=== PATIENT | female | born 1945 | race Caucasian/White ===

== ENCOUNTER → 2018-05-29 | Outpatient (CLI) | payer MEDICARE ==
[~2018-05-29] MED LIST: ACET-1600 PO; ALPH300C PO; AMIO200T PO; ASPI-496 PO; ATOR10TA PO; ATOR80TA PO; B VITAMIN PO; CLOP75TA52 PO; DEXL60CA2 PO; EZET10TA18 PO; FURO-92 PO; Hydrocodone Bit/Acetaminophen PO; INDA2.5T PO; LACT1CAP35 PO; LEVO50TA PO; LEVO50TA64 PO; LEVO75TA5 PO; LEVO75TA59 PO; LOSA100T6 PO; LOSA25TA5 PO; METO25TA91 PO; NOVALOG PUMP SC; POTA20TA14 PO; RANI150T23 PO; UBID200C PO; WARF2.5T73 PO-COUM
== END | disposition home or self-care (01) ==
LOC: CFH 10:51
PROVIDERS: ATTEND Internal Medicine Cardiovascular Disease
DX: I10 Essential (primary) hypertension (principal); E10.9 Type 1 diabetes mellitus without complications; E78.5 Hyperlipidemia, unspecified
CPT/HCPCS: 93306

== ENCOUNTER → 2018-10-18 | Outpatient (CLI) | payer MEDICARE ==
[~2018-10-18] MED LIST changes: -LOSA100T6 PO; +LOSA100T7 PO; -LOSA25TA5 PO; +LOSA25TA6 PO; +REGADENOSON 0.4 MG/5 ML SYRINGE ONE; +WARF2.5T32 PO-COUM; -WARF2.5T73 PO-COUM
== END | disposition home or self-care (01) ==
LOC: CFH 12:45
PROVIDERS: ATTEND Internal Medicine Cardiovascular Disease
DX: I25.9 Chronic ischemic heart disease, unspecified (principal)
CPT/HCPCS: 78452; 93017; A9502; J2785

== ENCOUNTER 2018-11-03 07:39 | Day surgery (SDC) | payer MEDICARE ==
[~2018-11-03] VITALS: Ht 171.4 cm; Wt 72.7 kg
[~2018-11-03 07:39] MED LIST changes: -REGADENOSON 0.4 MG/5 ML SYRINGE ONE
[2018-11-03 08:08] VITALS: BP 143/71
[2018-11-03] MEDS ORDERED: NITR0.6T4 SL (08:25)
[2018-11-03 08:42] LABS: BASOPHILS # (AUTO) 0.03 x10^3/uL (0-0.1); BASOPHILS % (AUTO) 1 % (0-1); EOSINOPHILS # (AUTO) 0.09 x10^3/uL (0-0.4); EOSINOPHILS % (AUTO) 2 % (1-7); LYMPHOCYTES # (AUTO) 1.21 x10^3/uL (1-3.4); LYMPHOCYTES % (AUTO) 28 % (22-44); MD NO; MEAN CORPUSCULAR HEMOGLOBIN 30.5 pg (27.0-34.8); MEAN CORPUSCULAR HGB CONC 33.2 g/dL (32.4-35.8); MEAN PLATELET VOLUME 7.7 fL (7.4-10.4); MONOCYTES # (AUTO) 0.35 x10^3/uL (0.2-0.8); MONOCYTES % (AUTO) 8 % (2-9); NEUTROPHILS # (AUTO) 2.58 x10^3/uL (1.8-6.8); NEUTROPHILS % (AUTO) 60 % (42-75); PLATELET COUNT 283 x10^3/uL (130-400); RED BLOOD COUNT 3.97 x10^6/uL (3.82-5.3); RED CELL DISTRIBUTION WIDTH 12.7 % (9.6-15.2)
[2018-11-03 08:54] LABS: ALANINE AMINOTRANSFERASE 21 U/L (12-78); ALBUMIN 3.6 g/dL (3.4-5.0); ANION GAP 9 mmol/L (5-15); CALCIUM 8.6 mg/dL (8.5-10.1); CHLORIDE 107 mmol/L (98-107)
[2018-11-03 08:57] LABS: ALKALINE PHOSPHATASE 53 U/L (45-117); BILIRUBIN,TOTAL 1.2 mg/dL (0.2-1.0); CREATININE 1.17 mg/dL (0.55-1.02); TOTAL PROTEIN 6.5 g/dL (6.4-8.2)
[2018-11-03] MEDS ORDERED: TICAGRELOR 90 MG TABLET ONE (09:16)
[2018-11-03] MEDS ORDERED: FENTANYL PF 100 MCG/2ML ONE (09:16)
[2018-11-03] MEDS ORDERED: NITROGLYCERIN 5 MG/ML, 10ML ONE (09:16)
[2018-11-03] MEDS ORDERED: BIVALIRUDIN 250 MG ONE (09:16)
[2018-11-03] MEDS ORDERED: MIDAZOLAM 1 MG/ML, 5ML ONE (09:16)
[2018-11-03] MEDS ORDERED: VERAPAMIL 2.5 MG/ML, 2ML ONE (09:16)
[2018-11-03] MEDS ORDERED: HEPARIN 1,000 UNITS/ML, 10ML ONE (09:17)
[2018-11-03] MEDS ORDERED: LIDOCAINE 2%, 20ML ONE (09:17)
== END 2018-11-03 13:18 | disposition home or self-care (01) ==
LOC: CACL 07:39
PROVIDERS: ATTEND Internal Medicine Cardiovascular Disease
DX: I25.10 Atherosclerotic heart disease of native coronary artery without angina pectoris (principal); I35.8 Other nonrheumatic aortic valve disorders; E10.8 Type 1 diabetes mellitus with unspecified complications; I10 Essential (primary) hypertension; Z79.899 Other long term (current) drug therapy
CPT/HCPCS: 36415; 80053; 85025; 93459; 99156; C1760; C1769; C1894; J2250; J3010; J3490; Q9967; J0583; J1644

== ENCOUNTER 2021-04-30 05:33 | Day surgery (SDC) | payer MEDICARE ==
[2021-04-29 11:06] LABS: ALANINE AMINOTRANSFERASE 27 U/L (12-78); ALBUMIN 3.5 g/dL (3.4-5.0); ANION GAP 6 mmol/L (5-15); CALCIUM 9.4 mg/dL (8.5-10.1); CHLORIDE 103 mmol/L (98-107)
[2021-04-29 11:09] LABS: ALKALINE PHOSPHATASE 55 U/L (45-117); BILIRUBIN,TOTAL 0.8 mg/dL (0.2-1.0); CREATININE 1.02 mg/dL (0.55-1.02)
[~2021-04-30] VITALS: Ht 175.3 cm; Wt 71.9 kg
[~2021-04-30 05:33] MED LIST changes: +ACET650S21 PO; -EZET10TA18 PO; +EZET10TA70 PO; +LOSA100T14 PO; -LOSA100T7 PO; +LOSA25TA25 PO; -LOSA25TA6 PO; +NITR0.6T4 SL; +RANI-467 PO; -RANI150T23 PO; -UBID200C PO; +UBID200C33 PO; +VITA1CAP PO
[2021-04-30 06:27] VITALS: BP 160/80
[2021-04-30] MEDS ORDERED: CHLORHEXIDINE 15 ML UDC PO ONE (06:30)
[2021-04-30] MEDS ORDERED: LACTATED RINGERS 1,000 ML IV SCH (06:30)
[2021-04-30] MEDS ORDERED: HEPARIN 1,000 UNITS/ML, 10ML ONE (06:38)
[2021-04-30] MEDS ORDERED: BUPIVACAINE/PF 0.5% ONE (06:38)
[2021-04-30] MEDS ORDERED: EPINEPHRINE 1 MG/ML, 1ML ONE (06:38)
[2021-04-30] MEDS ORDERED: FENTANYL PF 100 MCG/2ML ONE (07:22)
[2021-04-30] MEDS ORDERED: MIDAZOLAM 1 MG/ML, 2ML ONE (07:22)
[2021-04-30] MEDS ORDERED: PROPOFOL 10 MG/ML, 20ML ONE (07:58)
[2021-04-30] MEDS ORDERED: ONDANSETRON 2MG/ML, 2ML ONE (07:58)
[2021-04-30] MEDS ORDERED: CEFAZOLIN 1,000 MG ONE ×2 (07:58)
[2021-04-30] MEDS ORDERED: ONDANSETRON 2MG/ML, 2ML IVPush PRN (08:00)
[2021-04-30] MEDS ORDERED: HYDROmorphone 1 MG/ML, 1ML INJ IVPush PRN (08:00)
[2021-04-30] MEDS ORDERED: FENTANYL PF 100 MCG/2ML IV PRN (08:00)
[2021-04-30] MEDS ORDERED: ACETAMINOPHEN 325 MG TABLET PO PRN (08:00)
[2021-04-30] MEDS ORDERED: MEPERIDINE/PF 25MG/0.5ML IVPush PRN (08:00)
[2021-04-30] MEDS ORDERED: OXYcodone 5 MG/5 ML ORAL.SOL UDC PO PRN (08:00)
[2021-04-30] MEDS ORDERED: HYDR-2214 PO (08:36)
[2021-04-30] MEDS ORDERED: ONDA4TAB7 PO (08:36)
== END 2021-04-30 09:30 | disposition home or self-care (01) ==
LOC: OUT 05:33
PROVIDERS: ATTEND Surgery
DX: C50.812 Malignant neoplasm of overlapping sites of left female breast (principal); I25.10 Atherosclerotic heart disease of native coronary artery without angina pectoris; I10 Essential (primary) hypertension; E11.9 Type 2 diabetes mellitus without complications; E03.9 Hypothyroidism, unspecified; Z17.1 Estrogen receptor negative status [ER-]; Z20.822 Contact with and (suspected) exposure to COVID-19; Z79.899 Other long term (current) drug therapy; Z88.0 Allergy status to penicillin; Z95.1 Presence of aortocoronary bypass graft
CPT/HCPCS: 36415; 36561; 71045; 77001; 80053; 82962; 93005; C1788; J0171; J0690; J1644; J2250; J2405; J2704; J3010; J7120; U0003; U0005